=== PATIENT | male | born 1960 | race Hispanic/Latino ===

== ENCOUNTER 2025-01-06 03:49 | Inpatient (IN) | payer OTHER ==
[2025-01-06 04:27] LABS: Absolute Lymphocytes (CBC) 1.5 K/uL (0.7-4.9); Hematocrit 43.7 % (39.6-49.0); Hemoglobin 14.7 g/dL (13.6-17.9); MCH 28.6 pg (27.0-35.0); MCHC 33.6 g/dL (32.0-36.0); MCV 85.1 fL (80-100); MPV 8.3 fL (7.6-11.3); Nucleated RBC Absolute Count 0.0 (0-0); Nucleated Red Blood Cells % 0.0 % (0-0); RBC Red Blood Cell Count 5.14 M/uL (4.33-5.43); White Blood Count 6.60 thou/uL (4.3-10.9)
[2025-01-06] MEDS ORDERED: KETOROLAC 30 MG/ML INJ ONE (04:38)
[2025-01-06] MEDS ORDERED: ONDANSETRON 4 MG/2 ML VIAL ONE (04:38)
[2025-01-06] MEDS ORDERED: METOCLOPRAMIDE 10 MG/2mL INJ ONE (04:38)
[2025-01-06] MEDS ORDERED: MORPHINE 4 MG/ML SYR ONE (04:39)
[2025-01-06] MEDS ORDERED: NA CHLORIDE 0.9% 2,000 ML ONE (04:39)
[2025-01-06 04:45] LABS: ALT/SGPT 26 U/L (16-61); Albumin 3.3 g/dL (3.4-5.0); Albumin/Globulin Ratio 0.8 (1.1-1.8); Alkaline Phosphatase 84 U/L (45-117); Anion Gap 6.8 mEq/L (5.0-15.0); BUN Blood Urea Nitrogen 13 mg/dL (7-18); Globulin 4.1 g/dL (2.3-3.5); Glucose Level 185 mg/dL (74-106); Lipase 45 U/L (13-75); Potassium 3.8 mEq/L (3.5-5.1)
[2025-01-06 04:51] LABS: AST/SGOT < 10 U/L (15-37)
[2025-01-06 05:04] LABS: Urine Microscopic Reflex YN NO UMIC
--- NOTE | 2025-01-06 07:53 | RAD REPORT ---
EXAM: Abdominal exam Limited ultrasound CLINICAL HISTORY: Abdominal pain COMPARISON: CT abdomen January 06, 2025 FINDINGS: A gallstone is not seen. Gallbladder wall is mildly thickened. Biliary tree normal caliber IMPRESSION: Mild thickening gallbladder wall may indicate acalculous cholecystitis
--- NOTE | 2025-01-06 08:07 | RAD REPORT ---
EXAMINATION: CT ABDOMEN AND PELVIS WITH CONTRAST CLINICAL INDICATION: Abdominal pain TECHNIQUE: CT abdomen and pelvis was performed, after the administration of 100 cc Isovue-300.. Sagit chaz and coronal reconstructions were obtained. One or more of the following dose reduction techniques were used: Automated exposure control, adjustment of the mA and kV according to patient si ze, and iterative reconstruction. Unless otherwise specified, incidental findings do not require dedicated imaging follow-up. [id number]. Oral contrast was not given which limits evaluation of bowel and appendix. COMPARISON: .None FINDINGS: Mild gallbladder wall thickening with stranding within the fat. Small hepatic cysts. Additional tiny low-density lesions within the liver too small to characterize b ut probably benign. The spleen, pancreas, adrenals and kidneys unremarkable Normal appendix. Diverticula stem from colon without diverticulitis. Small inguinal hernias containing fat. Tiny umbilical hernia : IMPRESSION: Mild thickening gallbladder wall with stranding in the adjacent fat probably indicating gallbladder i nflammation.
--- NOTE | 2025-01-06 08:14 | ER ---
Nurse's Notes [facility] Name: Jai Valverde Jr Age: 64 yrs Sex: Male : 1960 Arrival Date: 01/06/2025 Time: 03:49 Bed 7 Private MD: Diagnosis: Acute cholecystitis Presentation: 01/06 03:55 Chief complaint: Patient states: EIGHT UPPER QUADRANT PAIN, STOMACH BLOATING SINCE bm8 WEDNESDAY. 03:55 Coronavirus screen: Client denies travel out of the [place] in the last 14 days. At this bm8 time, the client does not indicate any symptoms associated with coronavirus-19. Ebola Screen: No symptoms or risks identified at this time. Initial Sepsis Screen: Does the patient meet any 2 criteria? No. Patient's initial sepsis screen is negative. Does the patient have a suspected source of infection? No. Patient's initial sepsis screen is negative. Risk Assessment: Do you want to hurt yourself or someone else? Patient reports no desire to harm self or others. Onset of symptoms was January 03, 2025. 03:55 Method Of Arrival: Ambulatory bm8 03:55 Acuity: LUIS 3 bm8 Triage Assessment: 04:17 General: Appears uncomfortable, Behavior is calm, cooperative. Pain: Complains of pain bm8 in right upper quadrant Pain currently is 8 out of 10 on a pain scale. Quality of pain is described as aching. Neuro: Level of Consciousness is awake, alert, obeys commands, Oriented to person, place, time, situation. Cardiovascular: Capillary refill < 3 seconds Patient's skin is warm and dry. Respiratory: Airway is patent Respiratory effort is even, unlabored, Respiratory pattern is regular, symmetrical. GI: Abdomen is round. Musculoskeletal: Circulation, motion, and sensation intact. Range of motion: intact in all extremities. Historical: - Allergies: 04:17 No Known Allergies; bm8 - PMHx: 04:17 Diabetes mellitus; Hypercholesterolemia; Hypertensive disorder; bm8 - Immunization history:: Adult Immunizations up to date. - Infectious Disease History:: Denies. - Social history:: Smoking status: Patient denies any tobacco usage or history of. - Family history:: not pertinent. Screenin:53 [facility] ED Fall Risk Assessment (Adult) History of falling in the last 3 months, kd3 including since admission No falls in past 3 months (0 pts) Confusion or Disorientation No (0 pts) Intoxicated or Sedated No (0 pts) Impaired Gait No (0 pts) Mobility Assist Device Used No (0 pt) Altered Elimination No (0 pt) Score/Fall Risk Level 0 - 2 = Low Risk Oriented to surroundings, Maintained a safe environment. Abuse screen: Denies threats or abuse. Denies injuries from another. Nutritional screening: No deficits noted. Tuberculosis screening: No symptoms or risk factors identified. Assessment: 05:52 General: Appears in no apparent distress. Behavior is calm, cooperative. Neuro: Level kd3 of Consciousness is awake, alert, obeys commands, Oriented to person, place, time, situation. Cardiovascular: Capillary refill < 3 seconds Patient's skin is warm and dry. Respiratory: Airway is patent Trachea midline Respiratory effort is even, unlabored, Respiratory pattern is regular, symmetrical. GI: Bowel sounds present X 4 quads. Abd is soft X 4 quads. 08:00 Reassessment: Patient appears in no apparent distress at this time. Patient is alert, bp oriented x 3, equal unlabored respirations, skin warm/dry/pink. ADMIT INITIATED. 09:30 Reassessment: Patient appears in no apparent distress at this time. Patient and/or cm10 family updated on plan of care and expected duration. Pain level reassessed. Patient is alert, oriented x 3, equal unlabored respirations, skin warm/dry/pink. Vital Signs: 03:55 BP 152 / 84; Pulse 74; Resp 18; Temp 98.8(O); Pulse Ox 99% on R/A; Weight 86.18 kg; bm8 Height 5 ft. 7 in. ; Pain 8/10; 05:52 BP 133 / 68; Pulse 64; Resp 16; Pulse Ox 95% on R/A; kd3 08:00 BP 136 / 79; Pulse 67; Resp 16; Pulse Ox 98% ; bp 09:55 BP 115 / 68; Pulse 59; Resp 16; Pulse Ox 97% ; cm10 03:55 Body Mass Index 29.76 (86.18 kg, 170.18 cm) bm8 03:55 Pain Scale: Adult bm8 [place] Coma Score: 06:50 Eye Response: spontaneous(4). Motor Response: obeys commands(6). Verbal Response: sp4 oriented(5). Total: 15. ED Course: 03:51 Patient arrived in ED. im 04:15 Mago Barajas, CRISTAL is Primary Nurse. kd3 04:17 Triage completed. bm8 04:19 Ramírez Moore MD is Attending Physician. sp4 04:30 Inserted saline lock: 20 gauge in right antecubital area, using aseptic technique. kd3 Blood collected. Flushed with 10 mL NS. 04:30 Lipase Sent. kd3 04:30 CMP Sent. kd3 05:34 CT Abd/Pelvis - IV Contrast Only In Process Unspecified. EDMS 05:53 Arm band placed on right wrist. kd3 05:53 Patient has correct armband on for positive identification. Provided Education on: kd3 medications . 07:06 Attending Physician role handed off by Ramírez Moore MD rn 07:06 Martin Lai MD is Attending Physician. rn 07:46 US Abdomen Limited In Process Unspecified. EDMS 08:13 Daiys Woodward MD is Hospitalizing Provider. rn 10:05 No provider procedures requiring assistance completed. Patient admitted, IV remains in cm10 place. Administered Medications: 04:45 Drug: NS 0.9% IV 1000 ml IV at 1000 ml once; to be given as a bolus over 60 minutes lg3 Route: IV; Rate: 1000 ml; Site: right antecubital; 09:09 Follow up: IV Status: Completed infusion bp 04:45 Drug: metoCLOPramide IVP 10 mg IVP once; over 1 to 2 minutes Route: IVP; Site: right lg3 antecubital; 09:09 Follow up: Response: No adverse reaction bp 04:45 Drug: Ondansetron IVP 4 mg IVP once; over 2 minutes Route: IVP; Site: right antecubital;lg3 09:10 Follow up: Response: No adverse reaction bp 04:45 Drug: morphine IVP or IV 4 mg IVP once over 4 mins Route: IVP; Infused Over: 4 mins; lg3 Site: right antecubital; 09:09 Follow up: Response: No adverse reaction bp 04:45 Drug: Ketorolac IVP 30 mg IVP once Route: IVP; Site: right antecubital; lg3 09:10 Follow up: Response: No adverse reaction bp 04:45 Drug: NS 0.9% IV 1000 ml IV at 150 ml/hr once; to be given at 150 ml / hour Route: IV; lg3 Rate: 150 ml/hr; Site: right antecubital; : Follow up: IV Status: Completed infusion bp 08:30 Drug: Piperacillin-Tazobactam IVPB 3.375 grams IVPB once over 60 mins; (mix in NS 100 bp mL) Route: IVPB; Infused Over: 60 mins; Site: right antecubital; : Follow up: IV Status: Completed infusion bp Medication: 05:53 VIS not applicable for this client. kd3 Outcome: 08:13 Decision to Hospitalize by Provider. rn 10:05 Admitted to Med/surg accompanied by tech, via wheelchair, [facility] 10:05 Condition: good 10:05 Instructed on the need for admit, 10:06 Patient left the ED. cm10 Signatures: Dispatcher [employer] EDMS Martin Lai MD MD rn Peltier, Brian RN RN bp Able, Soni RN RN lg3 Mago Barajas RN RN kd3 Ramírez Moore MD MD sp4 Maxine Martinez Clarissa RN RN cm10 Alden Rodríguez, RN RN bm8
--- NOTE | 2025-01-06 08:14 | EDPHYS ---
Physician Documentation [facility] Name: Jai Valverde Jr Age: 64 yrs Sex: Male : 1960 Arrival Date: 01/06/2025 Time: 03:49 Bed 7 Private MD: ED Physician Martin Lai HPI: 01/06 04:19 This 64 yrs old Male presents to ER via Ambulatory with complaints of sp4 Abdominal Pain. 06:46 Patient is a very pleasant 64-year-old male with history of diabetes, sp4 hypercholesterolemia and hypertension, presents with acute right upper abdominal pain.. 06:47 4 days of Right upper abdominal pain . sp4 Historical: - Allergies: 04:17 No Known Allergies; bm8 - PMHx: 04:17 Diabetes mellitus; Hypercholesterolemia; Hypertensive disorder; bm8 - Immunization history:: Adult Immunizations up to date. - Infectious Disease History:: Denies. - Social history:: Smoking status: Patient denies any tobacco usage or history of. - Family history:: not pertinent. ROS: 06:48 Constitutional: Negative for fever, chills, and weight loss, positive for right upper sp4 abdominal pain, positive for abdominal bloating Eyes: Negative for injury, pain, redness, and discharge, 06:48 All other systems are negative, Exam: 06:50 Constitutional: This is a well developed, well nourished patient who is awake, alert, sp4 and in no acute distress. Head/Face: Normocephalic, atraumatic. Eyes: Pupils equal round and reactive to light, extra-ocular motions intact. Lids and lashes normal. Conjunctiva and sclera are not injected. Cornea within normal limits. Periorbital areas with no swelling, redness, or edema. ENT: Nares patent. No nasal discharge, no septal abnormalities noted. Tympanic membranes are normal and external auditory canals are clear. Oropharynx with no redness, swelling, or masses, exudates, or evidence of obstruction, uvula midline. Mucous membranes moist. Neck: Trachea midline, no thyromegaly or masses palpated, and no cervical lymphadenopathy. Supple, full range of motion without nuchal rigidity, or vertebral point tenderness. Chest/axilla: Normal chest wall appearance and motion. Nontender with no deformity. No lesions are appreciated. Cardiovascular: Regular rate and rhythm with a normal S1 and S2. No gallops, murmurs, or rubs. No pulse deficits. Respiratory: Lungs have equal breath sounds bilaterally, clear to auscultation and percussion. No rales, rhonchi or wheezes noted. No increased work of breathing, no retractions or nasal flaring. Abdomen/GI: Soft, with normal bowel sounds. No distension or tympany. No guarding or rebound. No evidence of tenderness throughout. Back: No spinal tenderness. No costovertebral tenderness. Skin: Warm, dry with normal turgor. Normal color with no rashes, no lesions, and no evidence of cellulitis. MS/ Extremity: Pulses equal, no cyanosis. Neurovascular intact. Full, normal range of motion. Neuro: Awake and alert, GCS 15, oriented to person, place, time, and situation. Cranial nerves II-XII grossly intact. Motor strength 5/5 in all extremities. Sensory grossly intact. Psych: Awake, alert, with orientation to person, place and time. Behavior, mood, and affect are within normal limits Vital Signs: 03:55 BP 152 / 84; Pulse 74; Resp 18; Temp 98.8(O); Pulse Ox 99% on R/A; Weight 86.18 kg; bm8 Height 5 ft. 7 in. ; Pain 8/10; 05:52 BP 133 / 68; Pulse 64; Resp 16; Pulse Ox 95% on R/A; kd3 08:00 BP 136 / 79; Pulse 67; Resp 16; Pulse Ox 98% ; bp 09:55 BP 115 / 68; Pulse 59; Resp 16; Pulse Ox 97% ; cm10 03:55 Body Mass Index 29.76 (86.18 kg, 170.18 cm) bm8 03:55 Pain Scale: Adult bm8 [place] Coma Score: 06:50 Eye Response: spontaneous(4). Motor Response: obeys commands(6). Verbal Response: sp4 oriented(5). Total: 15. MDM: 04:39 Medical Screening Exam initiated sp4 06:50 Transition of care: After a detail discussion of the patient's case, care is sp4 transferred to Martin Lai MD. 07:06 Differential diagnosis: cholecystitis, Cholelithiasis, diverticulitis, gastritis, rn gastroesophageal reflux disease, non-specific abd pain, pancreatitis, Peptic Ulcer Disease, Perf. Duodenal Ulcer, Perf. Gastric Ulcer. Data reviewed: vital signs, nurses notes, lab test result(s). Transition of care: Care assumed from Ramírez Moore MD. 08:11 Consideration of Admission/Observation Patient was admitted/placed on observation. rn Escalation of care including admission/observation considered. Independent interpretation of the following test(s) in the Emergency Department CT Scan: My interpretation is CT abdomen pelvis shows possible cholecystitis, shows gallbladder wall thickening per my interpretation. Care significantly affected by the following chronic conditions: Diabetes, Hypertension. Counseling: I had a detailed discussion with the patient and/or guardian regarding the historical points, exam findings, and any diagnostic results supporting the discharge/admit diagnosis, lab results, radiology results, the need for further work-up and treatment in the hospital. Response to treatment: the patient's symptoms have mildly improved after treatment, and as a result, I will admit patient. 01/06 04:15 Order name: CBC with Diff; Complete Time: 06:20 kd3 01/06 04:15 Order name: CMP; Complete Time: 06:20 kd3 01/06 04:15 Order name: Lipase; Complete Time: 06:20 kd3 01/06 04:25 Order name: UA Rfx Demond Cult if indicated; Complete Time: 06:20 sp4 01/06 04:25 Order name: CRP; Complete Time: 06:20 sp4 01/06 08:57 Order name: Basic Metabolic Panel [facility] 01/06 08:57 Order name: Basic Metabolic Panel [facility] 01/06 08:57 Order name: Basic Metabolic Panel [facility] 01/06 08:57 Order name: Basic Metabolic Panel [facility] 01/06 08:57 Order name: CBC with Automated Diff [facility] 01/06 08:57 Order name: CBC with Automated Diff [facility] 01/06 08:57 Order name: CBC with Automated Diff [facility] 01/06 08:57 Order name: CBC with Automated Diff [facility] 01/06 08:57 Order name: Lipid Profile [facility] 01/06 08:57 Order name: Lipid Profile [facility] 01/06 04:24 Order name: CT Abd/Pelvis - IV Contrast Only; Complete Time: 08:08 sp4 01/06 06:49 Order name: US Abdomen Limited; Complete Time: 07:58 sp4 01/06 08:57 Order name: CONS Physician Consult [facility] 01/06 04:15 Order name: IV Saline Lock; Complete Time: 04:46 kd3 01/06 04:15 Order name: Labs collected and sent; Complete Time: 04:46 kd3 Administered Medications: 04:45 Drug: NS 0.9% IV 1000 ml IV at 1000 ml once; to be given as a bolus over 60 minutes lg3 Route: IV; Rate: 1000 ml; Site: right antecubital; 09:09 Follow up: IV Status: Completed infusion bp 04:45 Drug: metoCLOPramide IVP 10 mg IVP once; over 1 to 2 minutes Route: IVP; Site: right lg3 antecubital; 09:09 Follow up: Response: No adverse reaction bp 04:45 Drug: Ondansetron IVP 4 mg IVP once; over 2 minutes Route: IVP; Site: right antecubital;lg3 09:10 Follow up: Response: No adverse reaction bp 04:45 Drug: morphine IVP or IV 4 mg IVP once over 4 mins Route: IVP; Infused Over: 4 mins; lg3 Site: right antecubital; 09:09 Follow up: Response: No adverse reaction bp 04:45 Drug: Ketorolac IVP 30 mg IVP once Route: IVP; Site: right antecubital; lg3 09:10 Follow up: Response: No adverse reaction bp 04:45 Drug: NS 0.9% IV 1000 ml IV at 150 ml/hr once; to be given at 150 ml / hour Route: IV; lg3 Rate: 150 ml/hr; Site: right antecubital; 09:09 Follow up: IV Status: Completed infusion bp 08:30 Drug: Piperacillin-Tazobactam IVPB 3.375 grams IVPB once over 60 mins; (mix in NS 100 bp mL) Route: IVPB; Infused Over: 60 mins; Site: right antecubital; 09:09 Follow up: IV Status: Completed infusion bp Disposition Summary: 01/06/25 08:13 Hospitalization Ordered Notes: Hospitalization Status: Inpatient Admission rn Provider: Daisy Woodward rn Location: Telemetry/MedSurg (Inpatient) rn Condition: Stable rn Problem: new rn Symptoms: have improved rn Bed/Room Type: Standard rn Room Assignment: 224(01/06/25 09:02) eb Diagnosis - Acute cholecystitis rn Forms: - Medication Reconciliation Form rn - SBAR form rn - Leadership Thank You Letter rn Signatures: Dispatcher [employer] [facility] Martin Lai MD MD rn Peltier, Brian, RN RN Nettie Augustine Lacie, RN RN lg3 Mago Barajas, RN RN [id number] Ramírez Moore MD MD sp4 Alden Rodríguez, RN RN bm8 Corrections: (The following items were deleted from the chart) 06:50 06:50 Abdomen Limited+US.RAD.BRZ ordered. [facility] 07: 06:50 Differential diagnosis: bowel obstruction, coronary artery disease, rn cholecystitis, Cholelithiasis, diverticulitis, gastritis, gastroesophageal reflux disease, GI Bleed, sp4 07: 06:50 Data reviewed: vital signs, nurses notes, lab test result(s), radiologic studies, rn CT scan, ultrasound, sp4 07:07 06:50 Consideration of Admission/Observation Escalation of care including journeyman machinist/observation considered. sp4 09:02 08:13 norma schmidt
[2025-01-06] MEDS ORDERED: NA CHLORIDE 0.9% 100 ML ONE (08:17)
[2025-01-06] MEDS ORDERED: PIPERACIL/TAZO 3.375 GM VIAL IV ONE (08:18)
--- NOTE | 2025-01-06 08:56 | P.HP ---
Patient History Date of Service: 01/06/25 History of Present Illness: 64-year-old male with a history of H. pylori recently completed triple antibiotic presenting with abdominal pain. He states he went to see his PCP and he was given some antibiotics. Later on he went to his GI doctor Dr. Lin. He was tested for H. pylori and given triple antibiotic therapy with amoxicillin, clarithromycin, Protonix. He came to the hospital yesterday due to the increased abdominal discomfort without relief associated symptoms include nausea. He denies fevers, chills, diarrhea. His is alongside him. Allergies No Known Drug Allergies Allergy (Unverified 07/04/24 12:27) Unknown Review of Systems 10-point ROS is otherwise unremarkable ENT: Unremarkable Respiratory: Unremarkable Cardiovascular: Unremarkable Gastrointestinal: Nausea Genitourinary: Unremarkable Musculoskeletal: Unremarkable Integumentary: Unremarkable Physical Examination - Physical Exam General: In no apparent distress HEENT: Atraumatic, Normocephalic Neck: Supple Respiratory: Clear to auscultation bilaterally Cardiovascular: No edema Capillary refill: <2 Seconds Gastrointestinal: Normal bowel sounds, Tenderness Musculoskeletal: No warmth Integumentary: No rashes - Studies Laboratory Data (last 24 hrs) 01/06/25 01/06/25 04:18 04:18 WBC 6.60 Hgb 14.7 Hct 43.7 Plt Count 160 Sodium 139 Potassium 3.8 BUN 13 Creatinine 1.02 Glucose 185 H Total Bilirubin 0.6 AST < 10 L ALT 26 Alkaline Phosphatase 84 Lipase 45 Assessment and Plan - Plan Acalculous cholecystitis Hypertension Hypercholesterolemia Type 2 diabetes mellitus Obesity Admit to floor Clear liquid diet Start IV fluids Start IV Zosyn Appreciate general surgery recommendation CBC and CMP in the a.m. Zofran IV as needed Pain control with morphine and [place] DVT prophylaxis with Lovenox - Advance Directives Does patient have a Living Will: No Does patient have a Durable POA for Healthcare: No
[2025-01-06] MEDS: PIPER TAZO 3.375 GM in NA CHLORIDE 0.9% 100 ML IV SCH (09:00)
[2025-01-06 10:24] VITALS: O2SAT 97
[2025-01-06 11:02] VITALS: BMI 29.7
[2025-01-06] MEDS: NA CHLORIDE 0.9% 1,000 ML IV SCH (11:20)
[2025-01-06] MEDS: MORPHINE 2 MG/ML SYR IV PRN (17:17)
--- NOTE | 2025-01-06 18:08 | CON ---
Date of Consultation: 01/06/2025 Diagnosis: Acalculous cholecystitis. History Of Present Illness: This is the case of a 64-year-old patient who comes to us with abdominal pain in the epigastric area for about 3 days. The last night, it got worse. He has been followed b emir Lin for H pylori. He has not completely started treatment, although he was prescribed the gwendolyn atment for H pylori in the stomach with history of gastritis, but at this time, it also shows some th ickening of the gallbladder, mild thickening that cannot rule out to be acalculous cholecystitis. So , a surgical consult was obtained. Even though he was feeling not too great in the last 3 days, last night he ate some from a restaurant and then basically just got worse overnight. He come s to us today. He feels better. He denies any dysuria, hematuria, hematochezia, melena. Denies any recent traveling out of the country. Denies any family member sick at home. No jaundice. No short ness of breath. No chest pain. Review of Systems: Ten points otherwise unremarkable. Past Medical History: H pylori gastritis diagnosed by his stabilizer operator. Last colonoscopy was about a year ago. No EGDs. He is in the process of being done by the Dr. Lin. Allergies: NONE. Social History: He does not smoke. He does not drink alcohol. Surgeries: None. Family History: Noncontributory. Physical Examination: Vital Signs: Blood pressure is , temperature is 97.7, O2 saturation 97, respirations 16. General: The patient is awake, alert. HEENT: Pupils are equal and reactive. Anicteric. Neck: Supple. Chest: Clear. Heart: S1, S2. Abdomen: Soft and depressible. There is some epigastric pain, but no Guidry sign today. Rectal: Deferred. Extremities: Good capillary refill. Laboratory Data: Blood work shows WBC count of 6.6, hemoglobin of 14.7, and platelets of 160. Potas sium is 3.8, chloride is 106, glucose 185. Total bilirubin is normal. Alkaline phosphatase is sofie l. AST less than 10, ALT 26. Lipase 45. Imaging that includes abdomen and CAT scan shows inguinal hernias. Advised to discuss that with me as an outpatient. Also, tiny umbilical hernia, but this no t really was causing trouble at this moment. He has also had diverticula, but he has also some mild thickening of the wall with stranding adjacent to the gallbladder that may be indicative of early eliseo lculous cholecystitis. No gallstones. Assessment: A 64-year-old patient with acalculous cholecystitis first time, history of Helicobacter pylori. He has not started treatment yet. He is due for an EGD, so we are going to try to give him antibiotics right now. We have given some advice on the diet and how to follow with the gastroentero logist. Also, his antibiotics he is going to take in. If he does not improve, then we will proceed with a cholecystectomy. This is the first time. He is going to try to control the diet. Hopefully, we can treat this nonsurgical. The rest of the problems that he has, we discussed the CAT scan, I a sked him to come to my office to discuss the options once again in the case of hernias. BECKI/EAMON Voice ID: [id number] Report ID: [id number]
[2025-01-07 05:55] LABS: Absolute Lymphocytes (CBC) 1.3 K/uL (0.7-4.9); Hematocrit 40.8 % (39.6-49.0); Hemoglobin 13.7 g/dL (13.6-17.9); MCH 28.7 pg (27.0-35.0); MCHC 33.6 g/dL (32.0-36.0); MCV 85.6 fL (80-100); MPV 8.5 fL (7.6-11.3); Nucleated RBC Absolute Count 0.0 (0-0); Nucleated Red Blood Cells % 0.0 % (0-0); RBC Red Blood Cell Count 4.76 M/uL (4.33-5.43); White Blood Count 5.90 thou/uL (4.3-10.9)
[2025-01-07 06:24] LABS: Anion Gap 7.2 mEq/L (5.0-15.0); BUN Blood Urea Nitrogen 10.0 mg/dL (7-18); Glucose Level 130.0 mg/dL (74-106); HDL Cholesterol 32.0 mg/dL (40-60); LDL Cholesterol, Calculated 72.0 mg/dL (<130); LDL Cholesterol,Calc NonReport 72.0; Potassium 4.2 mEq/L (3.5-5.1)
--- NOTE | 2025-01-07 07:40 | P.PN ---
Date of Service: 01/07/25 Subjective: He continues to endorse pain. He rates the pain at a 7 out of 10. We discussed surgery tomorrow morning. Vital stable overnight. Elevated blood pressures overnight Review of Systems 10-point ROS is otherwise unremarkable ENT: Unremarkable Respiratory: Unremarkable Cardiovascular: Unremarkable Gastrointestinal: Nausea Genitourinary: Unremarkable Musculoskeletal: Unremarkable Integumentary: Unremarkable Physical Examination - Physical Exam General: In no apparent distress HEENT: Atraumatic, Normocephalic Neck: Supple Respiratory: Clear to auscultation bilaterally Cardiovascular: No edema Capillary refill: <2 Seconds Gastrointestinal: Normal bowel sounds, Tenderness Musculoskeletal: No warmth Integumentary: No rashes - Studies Laboratory Data (last 24 hrs) 01/06/25 01/06/25 04:18 04:18 WBC 6.60 Hgb 14.7 Hct 43.7 Plt Count 160 Sodium 139 Potassium 3.8 BUN 13 Creatinine 1.02 Glucose 185 H Total Bilirubin 0.6 AST < 10 L ALT 26 Alkaline Phosphatase 84 Lipase 45 Assessment and Plan - Plan Acalculous cholecystitis Hypertension Hypercholesterolemia Type 2 diabetes mellitus Obesity 01/07 - Restart home losartan hydrochlorothiazide - Clear liquid diet today. Stop IV fluids due to blood pressure - N.p.o. at midnight - Continue Zosyn - Appreciate Dr. Mares recommendations Admit to floor Clear liquid diet Start IV fluids Start IV Zosyn Appreciate general surgery recommendation CBC and CMP in the a.m. Zofran IV as needed Pain control with morphine and [place] DVT prophylaxis with Lovenox - Advance Directives Does patient have a Living Will: No Does patient have a Durable POA for Healthcare: No
[2025-01-07] MEDS: HYDRALAZINE HCL 20 MG/ML VIAL IV PRN (08:18)
[2025-01-07] MEDS: HYDROCODONE/APAP 5/325 MG TAB PO PRN (15:57)
[2025-01-07] MEDS: ENOXAPARIN 40 MG/0.4 ML SQ SCH (17:00)
[2025-01-07] MEDS: LOSARTAN/HCTZ 50-12.5 PO ONE (17:29)
--- NOTE | 2025-01-07 19:08 | PN ---
Date of Progress Note: 01/07/2025 Diagnosis: H. pylori gastritis and cholecystitis. Subjective: This is the case of a 64-year-old patient comes with epigastric pain. Currently, he has been treated for H. pylori gastritis, but he is about to start his treatment when he comes here righ t now. During the process, the patient was found to have some inflammation of the gallbladder that m ay be related to cholecystitis, although no gallstones or noting else was found. The patient is impr oving. He is tolerating diet, has no guarding, no rebound. No Guidry sign at this moment. White co unt is normal. Plan: Will be to continue the antibiotics. Follow with the [employer] flex developer in 3 days. He has ga stritis. He is taking amoxicillin 1000 twice a day that will also treat his cholecystitis if there i s 1 there. As an outpatient, we can continue the workup that may include also HIDA scan. At this mo ment, there is no peritonitis and still the abdomen right now, there is no guarding rebound and just minimal pain. No tenderness. BECKI/CHIPL Voice ID: [id number] Report ID: [id number]
[2025-01-07] MEDS: ONDANSETRON 4 MG/2 ML VIAL IV PRN (19:36)
[2025-01-08 07:00] LABS: Absolute Lymphocytes (CBC) 1.1 K/uL (0.7-4.9); Hematocrit 44.8 % (39.6-49.0); Hemoglobin 15.3 g/dL (13.6-17.9); MCH 29.0 pg (27.0-35.0); MCHC 34.2 g/dL (32.0-36.0); MCV 84.8 fL (80-100); MPV 8.2 fL (7.6-11.3); Nucleated RBC Absolute Count 0.0 (0-0); Nucleated Red Blood Cells % 0.0 % (0-0); RBC Red Blood Cell Count 5.29 M/uL (4.33-5.43); White Blood Count 6.30 thou/uL (4.3-10.9)
[2025-01-08 07:14] LABS: Anion Gap 10.1 mEq/L (5.0-15.0); BUN Blood Urea Nitrogen 9.0 mg/dL (7-18); Glucose Level 130.0 mg/dL (74-106); Potassium 4.1 mEq/L (3.5-5.1)
[2025-01-08] MEDS: LOSARTAN/HCTZ 50-12.5 PO SCH (08:55)
[2025-01-08 08:59] VITALS: BP 165/91; TEMP 97.9
[2025-01-08] MEDS ORDERED: HOME MED 1 EA UNK (Losartan/Hydrochlorothiazide [Losartan-Hctz 100-25 Mg Tab] 1 EACH Table PO SCH (09:00)
[2025-01-08] MEDS: ACETAMINOPHEN 325 MG TABLET PO PRN (09:52)
[2025-01-08] MEDS ORDERED: LOSARTAN/HCTZ 50-12.5 PO ONE (17:00)
== END 2025-01-08 12:05 | disposition home or self-care (01) | DRG 446 ==
LOC: ER 03:49 → ERHOLD 08:50 → 2ND 09:21
PROVIDERS: ADMIT Family Medicine; ATTEND Hospitalist
DX: K81.0 Acute cholecystitis (principal); E11.9 Type 2 diabetes mellitus without complications; E78.00 Pure hypercholesterolemia, unspecified; I10 Essential (primary) hypertension; K29.70 Gastritis, unspecified, without bleeding; B96.81 Helicobacter pylori [H. pylori] as the cause of diseases classified elsewhere; E66.9 Obesity, unspecified; Z68.29 Body mass index [BMI] 29.0-29.9, adult
CPT/HCPCS: 36415; 74177; 76705; 80048; 80053; 80061; 81003; 82947; 83690; 85025; 86140; 96361; 96365; 96375; 99285; J0360; J1885; J2270; J2405; J2543; J2765; J7030; Q9967